=== PATIENT | female | born 1975 | race Caucasian/White ===

== ENCOUNTER 2017-12-02 17:04 | Emergency (ER) | payer MEDICAID ==
[2017-12-02 17:04] VITALS: BMI 25.7
[2017-12-02 17:49] VITALS: RESP 18
[2017-12-02] MEDS ORDERED: Sodium Chloride 0.9% 1,000 ML IV STA (18:30)
[2017-12-02 19:05] LABS: BASO # 0.01 K/mm3 (0.0-2.0); BASO % 0.1 % (0.0-3.0); EOS # 0.1 (0.0-0.7); EOS % 0.7 % (1.5-5.0); GRAN # 3.84 (1.4-6.5); GRAN % 57.7 % (50.0-68.0); HEMOGLOBIN 12.6 g/dL (12.0-16.0); LYMPH # 2.3 (1.2-3.4); LYMPH % 34.5 % (22.0-35.0); MEAN CELL VOLUME 85.1 fl (80.0-105.0); MEAN CORPUSCULAR HEMOGLOBIN 28.1 pg (25.0-35.0); MEAN PLATELET VOLUME 9.8 fl (7.0-11.0); MONO # 0.5 (0.1-0.6); RBC 4.49 10^6/uL (3.5-6.1); RED CELL DISTRIBUTION WIDTH 13.7 % (11.5-14.5); URINE APPEARANCE CLEAR (CLEAR); URINE BILIRUBIN NEGATIVE (NEGATIVE); URINE BLOOD NEGATIVE (NEGATIVE); URINE COLOR YELLOW (YELLOW); URINE GLUCOSE (UA) NEGATIVE (NEGATIVE); URINE LEUKOCYTE ESTERASE NEGATIVE Leu/uL (NEGATIVE); URINE PROTEIN NEGATIVE mg/dL (<30 mg/dL); URINE UROBILINOGEN 0.2 E.U./dL (<1 E.U./dL); WHITE BLOOD COUNT 6.7 10^3/ul (4.5-11.0)
[2017-12-02 19:13] LABS: ALB/GLOB RATIO 1.2 (1.1-1.8); ALBUMIN 4.8 g/dL (3.0-4.8); ALT/SGPT 38 U/L (7-56); AST/SGOT 38 U/L (14-36); BLOOD UREA NITROGEN 16 mg/dL (7-21); GFR NON-AFRICAN AMERICAN > 60; LIPASE 204 U/L (23-300)
--- NOTE | 2017-12-02 20:51 | ED PDOC ---
Arrival/HPI - General Chief Complaint: Abdominal Pain Time Seen by Provider: 12/02/17 17:35 Historian: Patient - History of Present Illness Narrative History of Present Illness (Text): 12/02/17 20:48 42-year-old female presents today with a 2 day history of worsening right sided abdominal pain. Patient states for many months she was having pain around the umbilicus but she states over the past 2 days the pain has changed and is now located in the right side of the abdomen with pain in the right side of the back. She denies fevers or chills. She denies nausea or vomiting. She denies diarrhea. She denies dysuria but states she has been urinary frequently for the past 2 days. She denies vaginal bleeding or discharge. She denies chest pain or shortness of breath. Past Medical History - Provider Review Nursing Documentation Reviewed: Yes - Travel History Have you recently traveled outside [place] w/in the past 3 mons?: No - Infectious Disease Hx of Infectious Diseases: None - Tetanus Immunization Tetanus Immunization: Unknown - Past Medical History Past Medical History: No Previous - Cardiac Hx Cardiac Disorders: Yes Hx Cardiac Arrhythmia: Yes - Pulmonary Hx Respiratory Disorders: Yes Hx Asthma: Yes - Neurological Hx Neurological Disorder: Yes - HEENT Hx HEENT Disorder: Yes Hx Glaucoma: Yes - Renal Hx Renal Disorder: No - Endocrine/Metabolic Hx Endocrine Disorders: Yes Hx Systemic Lupus Erythematosus: Yes - Hematological/Oncological Hx Blood Disorders: No Hx Hepatitis A: Yes - Integumentary Hx Dermatological Disorder: No Other/Comment: seborrheic dermatitis, rosecea - Musculoskeletal/Rheumatological Hx Musculoskeletal Disorders: Yes Hx Arthritis: Yes (both feet) - Gastrointestinal Hx Gastrointestinal Disorders: Yes (IBS WITHOUT CONSTIPATION) Hx Fatty Liver Disease: Yes Hx Gastroesophageal Reflux: Yes - Genitourinary/Gynecological Hx Genitourinary Disorders: No Hx Urinary Tract Infection: Yes - Psychiatric Hx Psychophysiologic Disorder: Yes Hx Anxiety: Yes Hx Depression: Yes Hx Substance Use: No - Past Surgical History Past Surgical History: No Previous - Surgical History Hx Section: Yes (X2) Hx Tubal Ligation: Yes Other/Comment: hx of ventral hernia repair. - Anesthesia Hx Anesthesia: Yes Hx Anesthesia Reactions: No Hx Malignant Hyperthermia: No - Suicidal Assessment Feels Threatened In Home Enviroment: No Family/Social History - Physician Review Nursing Documentation Reviewed: Yes Family/Social History: Unknown Family HX Smoking Status: Never Smoked Hx Alcohol Use: No Hx Substance Use: No Hx Substance Use Treatment: No Allergies/Home Meds Allergies/Adverse Reactions: Allergies Iodine and Iodide Containing Produc Allergy (Severe, Verified 12/02/17 17:27) ANGIOEDEMA became short of breath/ throat closing while having Ct of abd and pelvis on 06.20.2015 lactose Allergy (Intermediate, Verified 12/02/17 17:27) SWELLING oxycodone Allergy (Intermediate, Verified 12/02/17 17:27) SWELLING oxycodone HCl [From Percocet] Allergy (Intermediate, Verified 12/02/17 17:27) SWELLING Review of Systems - Review of Systems Constitutional: absent: Fatigue, Fevers Respiratory: absent: SOB, Cough Cardiovascular: absent: Chest Pain, Palpitations Gastrointestinal: Abdominal Pain. absent: Constipation, Diarrhea, Nausea, Vomiting Genitourinary Female: absent: Dysuria, Frequency, Hematuria Musculoskeletal: Back Pain. absent: Arthralgias, Neck Pain Skin: absent: Rash, Pruritis Neurological: absent: Headache, Dizziness Psychiatric: absent: Anxiety, Depression, Suicidal Ideation Physical Exam Vital Signs Reviewed: Yes Vital Signs Temp Pulse Resp BP Pulse Ox 12/02/17 21:00 98.5 F 75 18 118/71 100 12/02/17 17:44 98.2 F 89 18 129/71 99 12/02/17 17:22 98.8 F 86 18 131/77 97 Temperature: Afebrile Blood Pressure: Normal Pulse: Regular Respiratory Rate: Normal Appearance: Positive for: Well-Appearing, Non-Toxic, Comfortable Pain Distress: None Mental Status: Positive for: Alert and Oriented X 3 - Systems Exam Head: Present: Atraumatic Mouth: Present: Moist Mucous Membranes Neck: Present: Normal Range of Motion Respiratory/Chest: Present: Clear to Auscultation, Good Air Exchange. No: Respiratory Distress, Accessory Muscle Use Cardiovascular: Present: Regular Rate and Rhythm, Normal S1, S2. No: Murmurs Abdomen: Present: Tenderness (+ periumbilical and rlq tenderness, suprapubic tenderness). No: Distention, Peritoneal Signs, Rebound, Guarding Back: Present: Normal Inspection. No: CVA Tenderness, Midline Tenderness, Paraspinal Tenderness Upper Extremity: Present: Normal ROM Lower Extremity: Present: Normal ROM Neurological: Present: GCS=15, Speech Normal Skin: Present: Warm, Dry, Normal Color. No: Rashes Psychiatric: Present: Alert, Oriented x 3 Medical Decision Making ED Course and Treatment: 12/02/17 20:51 Patient is nontoxic well appearing with stable vital signs presenting with abdominal pain and back pain CBC WNL CMP WNL Lipase WNL Urinalysis wnl CAT scan: FINDINGS: Lung bases: Unremarkable. No mass. No consolidation. ABDOMEN: Liver: Unremarkable. Gallbladder and bile ducts: Gallstones. Gallbladder otherwise normal. No ductal dilation. Pancreas: Unremarkable. No ductal dilation. Spleen: Unremarkable. No splenomegaly. Adrenals: Unremarkable. No mass. Kidneys and ureters: Left renal cyst measuring larger than a centimeter in size. No obstructing stones. Stomach and bowel: Unremarkable. No obstruction. No mucosal thickening. PELVIS: Appendix: Normal appendix. Bladder: Unremarkable. No stones. Reproductive: Unremarkable as visualized. ABDOMEN and PELVIS: Intraperitoneal space: Unremarkable. No free air. No significant fluid collection. Bones/joints: No acute fracture. No dislocation. Soft tissues: Umbilical hernia repair. Vasculature: Unremarkable. No abdominal aortic aneurysm. Lymph nodes: Unremarkable. No enlarged lymph nodes. IMPRESSION: Gallstones. Gallbladder otherwise normal. Patient reassessment: pt is non toxic well appearing; no distress. Discussed all results with patient in depth We will start the patient on Keflex for urinary frequency consider possible UTI. We'll send urine culture. Advised patient to take Motrin every 6 hours as needed for pain and follow-up with the GI specialist within the next 2 days. I' ve advised immediate return if symptoms worsen persist or if new concerning symptoms develop Patient verbalizes understanding of discharge instructions and need for immediate followup. all aspects of this case were discussed the attending of record. Impression: Abdominal pain, gallstones, urinary frequency Motrin every 6 hours as needed for pain keflex; 1 capsule twice daily x 7 days Follow up with primary care physician within the next 2 days Follow up with GI specialist within the next 2 days. Return immediately if symptoms worsen persist or if new symptoms develop: High fevers, increasing pain, vomiting, diarrhea or any other concerning symptoms develop Reassessment Condition: Re-examined, Improved - Lab Interpretations Lab Results: 12/02/17 18:50 12/02/17 18:50 Lab Results 12/02/17 18:50: WBC 6.7, RBC 4.49, Hgb 12.6, Hct 38.2, MCV 85.1, MCH 28.1, MCHC 33.0, RDW 13.7, Plt Count 306, MPV 9.8, Gran % 57.7, Lymph % (Auto) 34.5, [place] % (Auto) 7.0 H, Eos % (Auto) 0.7 L, Baso % (Auto) 0.1, Gran # 3.84, Lymph # ( Auto) 2.3, [place] # (Auto) 0.5, Eos # (Auto) 0.1, Baso # (Auto) 0.01 12/02/17 18:50: Sodium 142, Potassium 3.7, Chloride 107, Carbon Dioxide 23, Anion Gap 16, BUN 16, Creatinine 0.9, Est GFR ( Amer) > 60, Est GFR (Non- Af Amer) > 60, Random Glucose 109, Calcium 10.0, Total Bilirubin 0.3, AST 38 H, ALT 38, Alkaline Phosphatase 57, Total Protein 8.8 H, Albumin 4.8, Globulin 4.0 , Albumin/Globulin Ratio 1.2, Lipase 204 12/02/17 18:50: Urine Color Yellow, Urine Appearance Clear, Urine pH 6.0, Ur Specific [place] 1.025, Urine Protein Negative, Urine Glucose (UA) Negative, Urine Ketones Negative, Urine Blood Negative, Urine Nitrate Negative, Urine Bilirubin Negative, Urine Urobilinogen 0.2, Ur Leukocyte Esterase Negative - RAD Interpretation Radiology Orders: 12/02/17 19:37 ABD & PELVIS W/O PO OR IV CONT [CT] Stat - Medication Orders Current Medication Orders: Discontinued Medications Sodium Chloride (Sodium Chloride 0.9%) 1,000 mls @ 999 mls/hr IV .Q1H1M STA Stop: 12/02/17 19:30 Last Admin: 12/02/17 18:57 Dose: 999 mls/hr eMAR Start Stop Document 12/02/17 18:57 [email or web address] (Rec: 12/02/17 18:58 [email or web address] [id number]) Intravenous Solution Start Date 12/02/17 Start Time 18:58 Ketorolac Tromethamine (Toradol) 30 mg IVP STAT STA Stop: 12/02/17 20:51 Last Admin: 12/02/17 21:29 Dose: 30 mg MAR Pain Assessment Document 12/02/17 21:29 RG (Rec: 12/02/17 21:30 [id number] Pain Reassessment Is this a pain reassessment? Yes Sleep Is patient sleeping during reassessment? No Presence of Pain Presence of Pain Yes Pain Scale Used Pain Scale Used Numeric Location Left, Right or Bilateral Right Upper or Lower Lower Pain Location Body Site Abdomen Description Intensity of Pain at present 6 Pain Behavior Rubbing Site IVP Administration Document 12/02/17 21:29 (Rec: 12/02/17 21:30 [id number]) Charges for Administration # of IVP Administrations 1 Disposition/Present on Arrival - Present on Arrival Any Indicators Present on Arrival: No History of DVT/PE: No History of Uncontrolled Diabetes: No Urinary Catheter: No History of Decub. Ulcer: No History Surgical Site Infection Following: None - Disposition Have Diagnosis and Disposition been Completed?: Yes Diagnosis: Abdominal pain, Gallstones, Urinary frequency Disposition: HOME/ ROUTINE Disposition Time: 21:37 Patient Plan: Discharge Condition: GOOD Discharge Instructions (ExitCare): Acute Abdomen (Belly Pain), Adult (DC), Gallstones (DC), Urinary Tract Infection, Adult (DC) Additional Instructions: Motrin every 6 hours as needed for pain keflex; 1 capsule twice daily x 7 days Follow up with primary care physician within the next 2 days Follow up with GI specialist within the next 2 days. Return immediately if symptoms worsen persist or if new symptoms develop: High fevers, increasing pain, vomiting, diarrhea or any other concerning symptoms develop Prescriptions: Cephalexin [Keflex] 500 mg PO BID #14 capsule Ibuprofen [Motrin] 600 mg PO Q6H PRN #20 tab PRN Reason: pain/fever reduction Referrals: Pepito Nye MD [Staff Provider] - Follow up with primary Britany Leal MD [Medical Doctor] - Follow up with primary [facility] [Outside] - Follow up with primary Forms: [employer] ([place]), WORK NOTE
[2017-12-02 21:18] VITALS: O2SAT 100
[2017-12-02] MEDS ORDERED: Tmp-Smz 800 mg-160 mg DS Tab PO STA (21:36)
[2017-12-03 01:30] VITALS: BP 120/68; PULSE 80; TEMP 9.4
--- NOTE | 2017-12-03 08:34 | CT ---
Date of service: 12/02/2017 PROCEDURE: CT Abdomen and Pelvis without intravenous contrast HISTORY: Abdominal pain COMPARISON: None. TECHNIQUE: CT scan of the abdomen and pelvis was performed without administration of intravenous contrast. Oral contrast was not administered. Coronal and sagittal reformatted images were obtained. . Radiation dose: Total exam DLP = 326.25 mGy-cm. This CT exam was performed using one or more of the following dose reduction techniques: Automated exposure control, adjustment of the mA and/or kV according to patient size, and/or use of iterative reconstruction technique. FINDINGS: LOWER THORAX: The visualized lungs are clear. LIVER: Normal in size. No intrahepatic ductal dilatation. GALLBLADDER AND BILE DUCTS: There are small calcified gallstones. There is mild gallbladder edema/pericholecystic fluid. No biliary dilatation. PANCREAS: Normal in size. No ductal dilatation. SPLEEN: Normal in size. ADRENALS: Normal in size. No discrete nodule. KIDNEYS AND URETERS: Normal in size without nephrolithiasis. No hydronephrosis. There is a 3.5 x 2.3 cm simple cyst in the lower pole medially. VASCULATURE: No aortic aneurysm. BOWEL: The small bowel loops are normal in caliber. The colon is normal in size. No bowel dilatation or wall thickening. No bowel obstruction. APPENDIX: Normal appendix. PERITONEUM: No free fluid. No free air. LYMPH NODES: No enlarged lymph nodes. BLADDER: Well distended and grossly normal in appearance. REPRODUCTIVE: The uterus is bulky and lobular with likely posterior wall fibroids. BONES: No acute fracture. OTHER FINDINGS: None. IMPRESSION: Cholelithiasis. Mild gallbladder edema/pericholecystic fluid. Please correlate with right upper quadrant ultrasound to evaluate for acute cholecystitis if clinically indicated. Lobular uterus with probable posterior wall fibroids. Please correlate with pelvic ultrasound on a nonemergent basis for further evaluation. A preliminary report was provided by [email or web address].
== END 2017-12-02 22:20 | disposition home or self-care (01) ==
LOC: ED 17:04
DX: K80.20 Calculus of gallbladder without cholecystitis without obstruction (principal); R35.0 Frequency of micturition; R10.9 Unspecified abdominal pain; M32.9 Systemic lupus erythematosus, unspecified
CPT/HCPCS: 74176; 80053; 81003; 83690; 85025; 87086; 96374; 99283; J1885; J7030

== ENCOUNTER 2017-12-05 09:41 | Emergency (ER) | payer MEDICAID ==
[2017-12-05 09:54] VITALS: RESP 18
[2017-12-05 09:55] VITALS: BMI 25.2
[2017-12-05] MEDS ORDERED: Sodium Chloride 0.9% 1,000 ML IV STA (10:14)
--- NOTE | 2017-12-05 10:18 | ED PDOC ---
Arrival/HPI - General Chief Complaint: Medical Clearance Time Seen by Provider: 12/05/17 09:41 - History of Present Illness Narrative History of Present Illness (Text): 12/05/17 10:11 A 42 year old female, whose past medical history includes gallstones, presents to the emergency department for re-evaluation based on medical imaging findings. Patient was seen in Emergency department 3 days ago and was cleared for discharge but was called back yesterday due to evidence of gallstones from her CT. Patient reports experiencing increased urinary frequency and bloating. Patient denies any hematuria, dysuria, fever, chills, shortness of breath, chest pain, diarrhea, nausea, vomiting, urinary symptoms, back pain, neck pain , headache, dizziness, or any other complaints. Time/Duration: > week (3 days ago ) Symptom Onset: Gradual Activities at Onset: Light Context: Home Past Medical History - Provider Review Nursing Documentation Reviewed: Yes - Infectious Disease Hx of Infectious Diseases: None - Tetanus Immunization Tetanus Immunization: Unknown - Past Medical History Past Medical History: No Previous - Cardiac Hx Cardiac Disorders: Yes Hx Cardiac Arrhythmia: Yes - Pulmonary Hx Respiratory Disorders: Yes Hx Asthma: Yes - Neurological Hx Neurological Disorder: Yes - HEENT Hx HEENT Disorder: Yes Hx Glaucoma: Yes - Renal Hx Renal Disorder: No - Endocrine/Metabolic Hx Endocrine Disorders: Yes Hx Systemic Lupus Erythematosus: Yes - Hematological/Oncological Hx Blood Disorders: No Hx Hepatitis A: Yes - Integumentary Hx Dermatological Disorder: No Other/Comment: seborrheic dermatitis, rosecea - Musculoskeletal/Rheumatological Hx Musculoskeletal Disorders: Yes Hx Arthritis: Yes (both feet) - Gastrointestinal Hx Gastrointestinal Disorders: Yes (IBS WITHOUT CONSTIPATION) Hx Fatty Liver Disease: Yes Hx Gastroesophageal Reflux: Yes - Genitourinary/Gynecological Hx Genitourinary Disorders: No Hx Urinary Tract Infection: Yes - Psychiatric Hx Psychophysiologic Disorder: Yes Hx Anxiety: Yes Hx Depression: Yes Hx Substance Use: No - Past Surgical History Past Surgical History: No Previous - Surgical History Hx Section: Yes (X2) Hx Tubal Ligation: Yes Other/Comment: hx of ventral hernia repair. - Anesthesia Hx Anesthesia: Yes Hx Anesthesia Reactions: No Hx Malignant Hyperthermia: No - Suicidal Assessment Feels Threatened In Home Enviroment: No Family/Social History - Physician Review Nursing Documentation Reviewed: Yes Family/Social History: Unknown Family HX Smoking Status: Never Smoked Hx Alcohol Use: No Hx Substance Use: No Hx Substance Use Treatment: No Allergies/Home Meds Allergies/Adverse Reactions: Allergies Iodine and Iodide Containing Produc Allergy (Severe, Verified 12/02/17 17:27) ANGIOEDEMA became short of breath/ throat closing while having Ct of abd and pelvis on 06.20.2015 lactose Allergy (Intermediate, Verified 12/02/17 17:27) SWELLING oxycodone Allergy (Intermediate, Verified 12/02/17 17:27) SWELLING oxycodone HCl [From Percocet] Allergy (Intermediate, Verified 12/02/17 17:27) SWELLING Review of Systems - Physician Review All systems were reviewed & negative as marked: Yes - Review of Systems Constitutional: absent: Fevers, Night Sweats Respiratory: absent: SOB Cardiovascular: absent: Chest Pain Gastrointestinal: absent: Diarrhea, Nausea, Vomiting Genitourinary Female: Frequency (+increased urinary frequency), Other (+bloated) . absent: Dysuria, Hematuria, Urine Output Changes, Vaginal Bleeding, Vaginal Discharge Musculoskeletal: absent: Back Pain, Neck Pain Neurological: absent: Headache, Dizziness Physical Exam Vital Signs Reviewed: Yes Vital Signs Temp Pulse Resp BP Pulse Ox 12/05/17 10:04 98.9 F 82 18 118/72 99 12/05/17 09:54 98.9 F 82 18 118/72 99 Temperature: Afebrile Blood Pressure: Normal Pulse: Regular Respiratory Rate: Normal Appearance: Positive for: Well-Appearing, Non-Toxic, Comfortable Pain Distress: None Mental Status: Positive for: Alert and Oriented X 3 - Systems Exam Head: Present: Atraumatic, Normocephalic Pupils: Present: PERRL Extroacular Muscles: Present: EOMI Conjunctiva: Present: Normal Mouth: Present: Moist Mucous Membranes Neck: Present: Normal Range of Motion Respiratory/Chest: Present: Clear to Auscultation, Good Air Exchange. No: Respiratory Distress, Accessory Muscle Use Cardiovascular: Present: Regular Rate and Rhythm, Normal S1, S2. No: Murmurs Abdomen: Present: Tenderness (+suprapubic tenderness), Distention. No: Normal Bowel Sounds, Peritoneal Signs, Rebound, Guarding, McBurney's Point Tender, Rovsing's Sign Present, Hernias, Feeding Tubes, Ostomy Tubes, Mass/Organomegaly , Scars Back: Present: Normal Inspection Upper Extremity: Present: Normal Inspection. No: Cyanosis, Edema Lower Extremity: Present: Normal Inspection. No: Edema Neurological: Present: GCS=15, CN II-XII Intact, Speech Normal Skin: Present: Warm, Dry, Normal Color. No: Rashes Psychiatric: Present: Alert, Oriented x 3, Normal Insight, Normal Concentration Medical Decision Making ED Course and Treatment: 12/05/17 10:17 Impression: 42 year old female presenting to the Emergency department presents to the emergency department for re-evaluation based on medical imaging findings. Differential Diagnosis included but are not limited to: - Biliary colic - Cholesystitis - Pancreatitis - New onset diabetes Plan: -- CMP -- Lipase -- IV fluids -- POC urine test -- Urinalysis -- Ultrasound of Abdomen -- Reassess and disposition Prior Visits: Notes and results from previous visits were reviewed. Patient was last seen in the emergency department on 12/02/17 for right sided abdominal pain and was discharged when symptoms improved with instruction for medication and a follow up with GI specialist. Progress Notes: 12/05/17 11:36 Dictator: Catalino Britt MD Procedure: Ultrasound of Abdomen GALLBLADDER: Unremarkable. No gallstones. COMMON BILE DUCT: Measures 3.0 mm. No stones. No dilatation. Impression: Simple cyst left kidney. Partial imaging of the pancreas with remainder the examination unremarkable. - Lab Interpretations Lab Results: 12/05/17 11:10 12/05/17 11:10 Lab Results 12/05/17 12:30: Urine Color Yellow, Urine Appearance Clear, Urine pH 6.0, Ur Specific [place] 1.025, Urine Protein Negative, Urine Glucose (UA) Negative, Urine Ketones Negative, Urine Blood Negative, Urine Nitrate Negative, Urine Bilirubin Negative, Urine Urobilinogen 0.2, Ur Leukocyte Esterase Negative 12/05/17 11:10: Sodium 142, Potassium 3.9, Chloride 107, Carbon Dioxide 23, Anion Gap 17, BUN 9, Creatinine 0.6 L, Est GFR ( Amer) > 60, Est GFR (Non -Af Amer) > 60, Random Glucose 89, Calcium 9.1, Total Bilirubin 0.3, AST 35, ALT 39, Alkaline Phosphatase 49, Total Protein 8.0, Albumin 4.4, Globulin 3.6, Albumin/Globulin Ratio 1.2, Lipase 132 12/05/17 11:10: WBC 4.9 D, RBC 4.39, Hgb 12.4, Hct 37.1, MCV 84.5, MCH 28.2, MCHC 33.4, RDW 13.6, Plt Count 275, MPV 10.1, Gran % 51.1, Lymph % (Auto) 36.6 H , [place] % (Auto) 11.1 H, Eos % (Auto) 1.0 L, Baso % (Auto) 0.2, Gran # 2.52, Lymph # (Auto) 1.8, [place] # (Auto) 0.6, Eos # (Auto) 0.1, Baso # (Auto) 0.01 - RAD Interpretation Radiology Orders: 12/05/17 10:16 ABDOMEN COMPLETE [US] Stat - Medication Orders Current Medication Orders: Discontinued Medications Sodium Chloride (Sodium Chloride 0.9%) 1,000 mls @ 999 mls/hr IV .Q1H1M STA Stop: 12/05/17 11:14 Last Admin: 12/05/17 11:21 Dose: 999 mls/hr eMAR Start Stop Document 12/05/17 11:21 [facility] (Rec: 12/05/17 11:21 [facility] [id number]) Intravenous Solution Start Date 12/05/17 Start Time 11:21 End Date 12/05/17 End time 12:21 Total Infusion Time 60 - Scribe Statement The provider has reviewed the documentation as recorded by the Brittany [place] All medical record entries made by the Andersiblucien were at my direction and personally dictated by me. I have reviewed the chart and agree that the record accurately reflects my personal performance of the history, physical exam, medical decision making, and the department course for this patient. I have also personally directed, reviewed, and agree with the discharge instructions and disposition. Disposition/Present on Arrival - Present on Arrival Any Indicators Present on Arrival: No History of DVT/PE: No History of Uncontrolled Diabetes: No Urinary Catheter: No History of Decub. Ulcer: No History Surgical Site Infection Following: None - Disposition Have Diagnosis and Disposition been Completed?: Yes Diagnosis: Abdominal pain Disposition: HOME/ ROUTINE Disposition Time: 13:02 Patient Plan: Discharge Patient Problems: Current Active Problems Problem Status Onset Abdominal pain Acute Condition: STABLE Discharge Instructions (ExitCare): Nausea and Vomiting, Adult (DC), Viral Gastroenteritis, Adult (DC) Referrals: Britany Leal MD [Medical Doctor] - Follow up with primary Forms: [employer] ([place]), WORK NOTE
--- NOTE | 2017-12-05 11:13 | US ---
Date of service: 12/05/2017 HISTORY: h/o gallstones w/ abd pain COMPARISON: Abdomen ultrasound 05/12/2015. TECHNIQUE: Sonographic evaluation of the abdomen. FINDINGS: LIVER: Measures 14.4 cm. Normal echogenicity of the liver parenchyma. No mass. No intrahepatic bile duct dilatation. GALLBLADDER: Unremarkable. No gallstones. COMMON BILE DUCT: Measures 3.0 mm. No stones. No dilatation. PANCREAS: The tail of the pancreas is obscured by overlying bowel gas with remainder unremarkable. RIGHT KIDNEY: Measures 9.5cm. Normal echogenicity. No calculus, mass, or hydronephrosis. LEFT KIDNEY: Measures 10.0cm. Normal echogenicity. No calculus, mass, or hydronephrosis. Simple cysts are identified at the left kidney including the lower pole measuring 2.2 x 2.7 x 1.8 cm and at the upper midpole region measuring 1.4 x 1.1 x 1.6 cm. SPLEEN: Normal in size and contour, 9.0 cm in size. No mass. AORTA: No aneurysmal dilatation. IVC: Unremarkable. OTHER FINDINGS: None. IMPRESSION: Simple cyst left kidney. Partial imaging of the pancreas with remainder the examination unremarkable.
[2017-12-05 11:59] LABS: BASO # 0.01 K/mm3 (0.0-2.0); BASO % 0.2 % (0.0-3.0); EOS # 0.1 (0.0-0.7); GRAN # 2.52 (1.4-6.5); GRAN % 51.1 % (50.0-68.0); HEMOGLOBIN 12.4 g/dL (12.0-16.0); LYMPH # 1.8 (1.2-3.4); LYMPH % 36.6 % (22.0-35.0); MEAN CELL VOLUME 84.5 fl (80.0-105.0); MEAN CORPUSCULAR HEMOGLOBIN 28.2 pg (25.0-35.0); MEAN CORPUSCULAR HGB CONC 33.4 g/dl (31.0-37.0); MEAN PLATELET VOLUME 10.1 fl (7.0-11.0); MONO # 0.6 (0.1-0.6); MONO % 11.1 % (1.0-6.0); RBC 4.39 10^6/uL (3.5-6.1); RED CELL DISTRIBUTION WIDTH 13.6 % (11.5-14.5); WHITE BLOOD COUNT 4.9 10^3/ul (4.5-11.0)
[2017-12-05 12:12] LABS: BLOOD UREA NITROGEN 9 mg/dL (7-21); GFR NON-AFRICAN AMERICAN > 60
[2017-12-05 12:13] LABS: ALB/GLOB RATIO 1.2 (1.1-1.8); ALBUMIN 4.4 g/dL (3.0-4.8); ALT/SGPT 39 U/L (7-56); AST/SGOT 35 U/L (14-36); CALCIUM 9.1 mg/dL (8.4-10.5); LIPASE 132 U/L (23-300)
[2017-12-05 12:54] LABS: URINE BILIRUBIN NEGATIVE (NEGATIVE); URINE BLOOD NEGATIVE (NEGATIVE); URINE GLUCOSE (UA) NEGATIVE (NEGATIVE); URINE LEUKOCYTE ESTERASE NEGATIVE Leu/uL (NEGATIVE); URINE PROTEIN NEGATIVE mg/dL (<30 mg/dL); URINE UROBILINOGEN 0.2 E.U./dL (<1 E.U./dL)
[2017-12-05 12:58] LABS: URINE APPEARANCE CLEAR (CLEAR); URINE COLOR YELLOW (YELLOW)
[2017-12-05 13:21] VITALS: BP 127/72; TEMP 98.7
[2017-12-05 13:51] VITALS: PULSE 87; O2SAT 98
== END 2017-12-05 13:53 | disposition home or self-care (01) ==
LOC: ED 09:41
DX: R10.9 Unspecified abdominal pain (principal); M32.9 Systemic lupus erythematosus, unspecified
CPT/HCPCS: 76700; 80053; 81003; 83690; 85025; 96360; 99283; J7030

== ENCOUNTER 2018-03-14 16:47 | Emergency (ER) | payer MEDICAID ==
[2018-03-14 17:17] VITALS: BMI 25.1
[2018-03-14] MEDS ORDERED: DiphenhydrAMINE 50 mg/ml Inj IVP STA (17:43)
[2018-03-14 20:23] VITALS: BP 145/67; PULSE 78; RESP 18; TEMP 98; O2SAT 98
--- NOTE | 2018-03-15 06:05 | ED PDOC ---
Arrival/HPI - General Chief Complaint: Abnormal Skin Integrity Time Seen by Provider: 03/14/18 17:27 Historian: Patient - History of Present Illness Narrative History of Present Illness (Text): 42 year old woman with past medical history of fibromyalgia, sjogrens syndrome, and seasonal allergies presents to the emergency department complaining of rash x 3 days. Rash is red, itchy, and disappears and reappears in different loca tions according to patient. Patient saw her primary doctor today and was given solu-Medrol IM and discharged home with a prescription for 50 mg of Prednisone daily for 4 days. Patient took prednisone this morning. State she's having no relief with these medications. Denies any recent changes in diet, soaps, or lotion. Denies recent travel or sick contacts. Patient is up-to-date on all vaccinations. Denies fevers, chills, abdominal pain, nausea, vomiting, headache, dizziness, vision changes, throat swelling, difficulty breathing, chest pain, sore throat, or any other associated symptoms. Past Medical History - Infectious Disease Hx of Infectious Diseases: None - Tetanus Immunization Tetanus Immunization: Unknown - Past Medical History Past Medical History: No Previous - Cardiac Hx Cardiac Disorders: Yes Hx Cardiac Arrhythmia: Yes - Pulmonary Hx Respiratory Disorders: Yes Hx Asthma: Yes - Neurological Hx Neurological Disorder: Yes - HEENT Hx HEENT Disorder: Yes Hx Glaucoma: Yes - Renal Hx Renal Disorder: No - Endocrine/Metabolic Hx Endocrine Disorders: Yes Hx Systemic Lupus Erythematosus: Yes - Hematological/Oncological Hx Blood Disorders: No Hx Hepatitis A: Yes - Integumentary Hx Dermatological Disorder: No Other/Comment: seborrheic dermatitis, rosecea - Musculoskeletal/Rheumatological Hx Musculoskeletal Disorders: Yes Hx Arthritis: Yes (both feet) - Gastrointestinal Hx Gastrointestinal Disorders: Yes (IBS WITHOUT CONSTIPATION) Hx Fatty Liver Disease: Yes Hx Gastroesophageal Reflux: Yes - Genitourinary/Gynecological Hx Genitourinary Disorders: No Hx Urinary Tract Infection: Yes - Psychiatric Hx Psychophysiologic Disorder: Yes Hx Anxiety: Yes Hx Depression: Yes Hx Substance Use: No - Past Surgical History Past Surgical History: No Previous - Surgical History Hx Section: Yes (X2) Hx Tubal Ligation: Yes Other/Comment: hx of ventral hernia repair. - Anesthesia Hx Anesthesia: Yes Hx Anesthesia Reactions: No Hx Malignant Hyperthermia: No - Suicidal Assessment Feels Threatened In Home Enviroment: No Family/Social History - Physician Review Nursing Documentation Reviewed: Yes Family/Social History: No Known Family HX Smoking Status: Never Smoked Hx Alcohol Use: No Hx Substance Use: No Hx Substance Use Treatment: No Allergies/Home Meds Allergies/Adverse Reactions: Allergies Iodine and Iodide Containing Produc Allergy (Severe, Verified 12/02/17 17:27) ANGIOEDEMA became short of breath/ throat closing while having Ct of abd and pelvis on 06.20.2015 lactose Allergy (Intermediate, Verified 12/02/17 17:27) SWELLING oxycodone Allergy (Intermediate, Verified 12/02/17 17:27) SWELLING oxycodone HCl [From Percocet] Allergy (Intermediate, Verified 12/02/17 17:27) SWELLING Review of Systems - Physician Review All systems were reviewed & negative as marked: Yes - Review of Systems Constitutional: Normal. absent: Fevers Eyes: Normal. absent: Vision Changes, Photophobia ENT: Normal. absent: Hearing Changes, Sinus Congestion Respiratory: Normal. absent: SOB, Cough, Wheezing Cardiovascular: Normal. absent: Chest Pain, Palpitations, Syncope Gastrointestinal: Normal. absent: Abdominal Pain, Nausea, Vomiting Genitourinary Female: Normal. absent: Dysuria, Frequency Musculoskeletal: Normal. absent: Arthralgias, Back Pain, Neck Pain, Joint Swelling Skin: Rash Neurological: Normal. absent: Headache, Dizziness Endocrine: Normal Hemo/Lymphatic: Normal Psychiatric: Normal Physical Exam Vital Signs Reviewed: Yes Vital Signs Temp Pulse Resp BP Pulse Ox 03/14/18 18:48 98 F 78 18 145/67 98 Temperature: Afebrile Blood Pressure: Normal Pulse: Regular Respiratory Rate: Normal Appearance: Positive for: Well-Appearing, Non-Toxic, Comfortable Pain Distress: None Mental Status: Positive for: Alert and Oriented X 3 - Systems Exam Head: Present: Atraumatic, Normocephalic, Other (redness of facial skin over nose and cheeks) Pupils: Present: PERRL Extroacular Muscles: Present: EOMI Conjunctiva: Present: Normal Ears: Present: Normal, NORMAL TM Mouth: Present: Moist Mucous Membranes Pharnyx: Present: Normal. No: ERYTHEMA, EXUDATE, TONSILS ENLARGED, Peritonsilar Swelling, Muffled/Hoarse Voice, Strider, Soft Palate/Uvular Edema Nose (External): Present: Atraumatic Nose (Internal): Present: Normal Inspection Neck: Present: Normal Range of Motion. No: Meningeal Signs, Paraspinal Tenderness, Lymphadenopathy Respiratory/Chest: Present: Clear to Auscultation, Good Air Exchange, Other (slightly elevated erythematous pruritic wheals ). No: Respiratory Distress, Accessory Muscle Use, Decreased Breath Sounds Cardiovascular: Present: Regular Rate and Rhythm, Normal S1, S2, Peripheal Pulses Present. No: Murmurs Abdomen: Present: Normal Bowel Sounds, Other (slightly elevated erythematous pruritic wheals ). No: Tenderness, Distention, Peritoneal Signs Back: No: Normal Inspection (slightly elevated erythematous pruritic wheals ) Upper Extremity: Present: Normal ROM, NORMAL PULSES, Neurovascularly Intact, Capillary Refill < 2s. No: Normal Inspection (slightly elevated erythematous pruritic wheals bilaterally), Cyanosis, Edema, Tenderness, Swelling, Temperature Abnormalties, Deformity Lower Extremity: Present: NORMAL PULSES, Normal ROM, Neurovascularly Intact, Capillary Refill < 2 s. No: Normal Inspection (slightly elevated erythematous pruritic wheals bilaterally), Edema, Tenderness, Swelling, Deformity, Temperature Abnormalties Neurological: Present: GCS=15, CN II-XII Intact, Speech Normal, Motor Func Jackie ssly Intact, Normal Sensory Function, Gait Normal Skin: Present: Warm, Dry, Normal Color. No: Rashes Psychiatric: Present: Alert, Oriented x 3, Normal Insight, Normal Concentration Medical Decision Making ED Course and Treatment: 1729 Initial Plan: * IV Solumedrol * IV Benadryl * IV Pepcid 1799 --At patient's request, ED attending Dr. Beaulieu evaluated and examined patient at bedside. Agrees with plan of care, states bloodwork is not indicated at this time. Recommends Atarax 50mg in place of Benadryl. 1899 --Patient received medications 1939 --Nursing notified me of increased patient agitation secondary to being asked to move to a hallway bed by nursing staff. Patient demanding to leave ED. Will have patient sign out AMA. 1944 --Patient agitated, yelling at staff, and demanding to leave emergency department. Risks of leaving AMA discussed with patient. Patient refusing to sign AMA paperwork, pulled out IV, and eloped from emergency department. - Medication Orders Current Medication Orders: Discontinued Medications Famotidine (Pepcid) 20 mg IVP STAT STA Stop: 03/14/18 17:44 Last Admin: 03/14/18 19:00 Dose: 20 mg IVP Administration Document 03/14/18 19:00 LA (Rec: 03/14/18 19:00 LA [id number]) Charges for Administration # of IVP Administrations 1 Hydroxyzine HCl (Atarax) 50 mg PO STAT STA Stop: 03/14/18 18:07 Last Admin: 03/14/18 18:59 Dose: 50 mg Methylprednisolone (Solu-Medrol) 125 mg IVP STAT STA Stop: 03/14/18 17:44 Last Admin: 03/14/18 19:00 Dose: 125 mg IVP Administration Document 03/14/18 19:00 LA (Rec: 03/14/18 19:00 LA [id number]) Charges for Administration # of IVP Administrations 1 Disposition/Present on Arrival - Present on Arrival Any Indicators Present on Arrival: No History of DVT/PE: No History of Uncontrolled Diabetes: No Urinary Catheter: No History of Decub. Ulcer: No History Surgical Site Infection Following: None - Disposition Have Diagnosis and Disposition been Completed?: No Diagnosis: Rash, Eloped from emergency department Disposition: ELOPEMENT - ER ONLY Disposition Time: 19:45 Condition: STABLE Referrals: Mary Morales MD [Primary Care Provider] - Follow up with primary Forms: [facility] [facility] (Al[place]ian)
== END 2018-03-14 19:45 | disposition left against medical advice (07) ==
LOC: ED 16:47
DX: R21 Rash and other nonspecific skin eruption (principal)
CPT/HCPCS: 96374; 96375; 99283; J2930